=== PATIENT | male | born 2000 | race Caucasian/White ===

== ENCOUNTER 2020-06-09 12:43 | Emergency (ER) | payer BC ==
--- NOTE | 2020-06-09 13:57 | EDM.PDOCBH ---
ED HPI GENERAL MEDICAL PROBLEM - General Chief Complaint: Behavioral/Psych Stated Complaint: SUICIDAL,DEPRESSION,FATIGUE Time Seen by Provider: 06/09/20 13:36 Source of Information: Reports: Patient, RN Notes Reviewed History Limitations: Reports: No Limitations - History of Present Illness INITIAL COMMENTS - FREE TEXT/NARRATIVE: Patient is a 19-year-old male who presents to the ED for the evaluation of his suicidal ideations and depression. He was brought into the ER by his father. The patient himself notes that for the last few days, all he has been doing is sleeping and staying in bed. He notes that he has pretty much had a loss of appetite, and states that he just cannot sleep when he is in bed. He did not sleep until 4:30 AM this morning. He does have a history of anxiety, and they did try him on Adderall for ADHD, but he states this did not seem to help. He has also been tried on hydroxyzine, but he states this was too sedated for him. He notes that about every other day for the past month he has had uncontrollable emotions, to the point where he goes and sits in his room and has to just be away from people. He has no current counselor or psychiatrist. He is not hearing things that are not there or seeing things that are not there. He has no active suicidal plan at this time, but has thought about using a knife to end his life, he has tried to hang himself with the sleeve of a coat in the past, he states he would maybe try poison in his life. He notes that roughly 3 months ago, he had all the symptoms of COVID-19, loss of his sense of taste and smell, and generalized fatigue. He states that this time he does feel chilled, but he has no fever or, cough or shortness of breath. He does have hypothyroidism as well, but is not on any medications for this. He has no regular provider that he goes to. He notes that he did move to [place] for a couple months, to try marijuana to help with his anxiety, but he did not think that this helped either so he stopped using this and moved back to [place] just recently. - Related Data Allergies Allergy/AdvReac Type Severity Reaction Status Date / Time No Known Allergies Allergy Verified 06/09/20 13:35 Home Meds: Home Meds . [No Known Home Meds] 06/09/20 [History] Past Medical History - Infectious Disease History Infectious Disease History: Reports: Novel Coronavirus (2019) Social & Family History - Tobacco Use Tobacco Use Status *Q: Never Tobacco User - Alcohol Use Alcohol Use History: No - Recreational Drug Use Recreational Drug Use: Yes Drug Use in Last 12 Months: Yes Recreational Drug Type: Reports: Marijuana/Hashish (used to use for anxiety, but has stopped) ED ROS GENERAL - Review of Systems Review Of Systems: Comprehensive ROS is negative, except as noted in HPI. ED EXAM, BEHAVIORAL HEALTH - Physical Exam Exam: See Below Exam Limited By: No Limitations General Appearance: Alert, WD/WN, No Apparent Distress Respiratory/Chest: No Respiratory Distress, Lungs Clear, Normal Breath Sounds, No Accessory Muscle Use, Chest Non-Tender Cardiovascular: Normal Peripheral Pulses, Regular Rate, Rhythm, No Edema GI/Abdominal: Normal Bowel Sounds, Soft, Non-Tender, No Distention, No Mass Neurological: Alert, Normal Cognition, No Motor/Sensory Deficits, Oriented x 3 Psychiatric: Alert, Oriented, Depressed Mood, Flat Affect, Poor Eye Contact, Withdrawn, Suicidal Thoughts (thought about cutting himself or poisoning himself.). No: Suicidal Plan, Auditory Hallucinations, Visual Hallucinations Skin Exam: Warm, Dry, Intact, Normal color, No rash COURSE, BEHAVIORAL HEALTH COMP - Course Vital Signs: Last Vital Signs Temp 98.6 F 06/09/20 13:22 Pulse 87 06/09/20 13:22 Resp 20 06/09/20 13:22 BP 101/77 06/09/20 13:22 Pulse Ox 99 06/09/20 13:22 Orders, Labs, Meds: Laboratory Tests 06/09/20 06/09/20 06/09/20 Range/Units 14:05 14:05 14:05 WBC 4.44 (4.23-9.07) K/mm3 RBC 5.78 (4.63-6.08) M/mm3 Hgb 16.6 (13.7-17.5) gm/dl Hct 48.5 (40.1-51.0) % MCV 83.9 (79.0-92.2) fl MCH 28.7 (25.7-32.2) pg MCHC 34.2 (32.2-35.5) g/dl RDW Std Deviation 37.8 (35.1-43.9) fL Plt Count 233 (163-337) K/mm3 MPV 9.0 L (9.4-12.3) fl Neutrophils % (Manual) 52 (40-60) % Band Neutrophils % 0 (0-10) % Lymphocytes % (Manual) 37 (20-40) % Atypical Lymphs % 0 % Monocytes % (Manual) 7 (2-10) % Eosinophils % (Manual) 4 (0.8-7.0) % Basophils % (Manual) 0 L (0.2-1.2) Platelet Estimate Adequate RBC Morph Comment Normal Sodium 138 (136-145) mEq/L Potassium 3.7 (3.5-5.1) mEq/L Chloride 102 (98-107) mEq/L Carbon Dioxide 31 (21-32) mEq/L Anion Gap 8.7 (5-15) BUN 10 (7-18) mg/dL Creatinine 0.9 (0.7-1.3) mg/dL Est Cr Clr Drug Dosing 126.67 mL/min Estimated GFR (MDRD) > 60 (>60) mL/min BUN/Creatinine Ratio 11.1 L (14-18) Glucose 85 (74-106) mg/dL Calcium 9.5 (8.5-10.1) mg/dL Total Bilirubin 0.5 (0.2-1.0) mg/dL AST 17 (15-37) U/L ALT 28 (16-63) U/L Alkaline Phosphatase 67 (46-116) U/L Total Protein 8.4 H (6.4-8.2) g/dl Albumin 4.5 (3.4-5.0) g/dl Globulin 3.9 gm/dL Albumin/Globulin Ratio 1.2 (1-2) TSH 3rd Generation 1.030 (0.516-4.13) uIU/mL Salicylates 1.2 L (2.8-20) mg/dL Urine Opiates Screen (HGAZGM=246) Ur Buprenorphine Scrn (CUTOFF=10) Ur Oxycodone Screen (UDO6TT=404) Urine Methadone Screen (PXF2ND=697) Ur Propoxyphene Screen (IDTZCN=987) Acetaminophen 0 L (10-30) ug/mL Ur Barbiturates Screen (ULJYPZ=583) Ur Tricyclics Screen (RCOKCH=307) Ur Phencyclidine Scrn (CUTOFF=25) Ur Amphetamine Screen (PTPYVH=560) U Methamphetamines Scrn (PXFRRJ=448) U Benzodiazepines Scrn (FXRQKD=942) U Cocaine Metab Screen (BLAGOT=258) U Marijuana (THC) Screen (CUTOFF=50) Ethyl Alcohol 0.00 (0.00) gm% 06/09/20 Range/Units 16:15 WBC (4.23-9.07) K/mm3 RBC (4.63-6.08) M/mm3 Hgb (13.7-17.5) gm/dl Hct (40.1-51.0) % MCV (79.0-92.2) fl MCH (25.7-32.2) pg MCHC (32.2-35.5) g/dl RDW Std Deviation (35.1-43.9) fL Plt Count (163-337) K/mm3 MPV (9.4-12.3) fl Neutrophils % (Manual) (40-60) % Band Neutrophils % (0-10) % Lymphocytes % (Manual) (20-40) % Atypical Lymphs % % Monocytes % (Manual) (2-10) % Eosinophils % (Manual) (0.8-7.0) % Basophils % (Manual) (0.2-1.2) Platelet Estimate RBC Morph Comment Sodium (136-145) mEq/L Potassium (3.5-5.1) mEq/L Chloride (98-107) mEq/L Carbon Dioxide (21-32) mEq/L Anion Gap (5-15) BUN (7-18) mg/dL Creatinine (0.7-1.3) mg/dL Est Cr Clr Drug Dosing mL/min Estimated GFR (MDRD) (>60) mL/min BUN/Creatinine Ratio (14-18) Glucose (74-106) mg/dL Calcium (8.5-10.1) mg/dL Total Bilirubin (0.2-1.0) mg/dL AST (15-37) U/L ALT (16-63) U/L Alkaline Phosphatase (46-116) U/L Total Protein (6.4-8.2) g/dl Albumin (3.4-5.0) g/dl Globulin gm/dL Albumin/Globulin Ratio (1-2) TSH 3rd Generation (0.516-4.13) uIU/mL Salicylates (2.8-20) mg/dL Urine Opiates Screen Negative (XMKCHK=854) Ur Buprenorphine Scrn Negative (CUTOFF=10) Ur Oxycodone Screen Negative (WFO8RN=416) Urine Methadone Screen Negative (NRU1OL=729) Ur Propoxyphene Screen Negative (RPVHME=741) Acetaminophen (10-30) ug/mL Ur Barbiturates Screen Negative (SDWLCC=487) Ur Tricyclics Screen Negative (EORLRQ=056) Ur Phencyclidine Scrn Negative (CUTOFF=25) Ur Amphetamine Screen Negative (LDRYJX=634) U Methamphetamines Scrn Negative (FIHZZB=025) U Benzodiazepines Scrn Negative (RGUMTF=149) U Cocaine Metab Screen Negative (KRISOF=307) U Marijuana (THC) Screen Presumptive positive H (CUTOFF=50) Ethyl Alcohol (0.00) gm% Discharge vs Psych Eval/Treatment:: 06/09/20 14:01 Patient presents to the ED for his suicidal thoughts and depression. At this time he is not actively suicidal, and just having fleeting thoughts. I do believe he would be appropriate to try outpatient management, I will be in touch with [facility] human services to try to align him a spot at [facility]. We will get basic labs for evaluation at this time. 06/09/20 16:18 Patient was able to provide us with a urine sample however this is still running at this time. All other labs are essentially unremarkable. Staff from [facility] was in to talk with the patient, they do have a bed at [facility] for the patient if he should choose to go there. The patient would like to talk over with his parents, to see if he could do more of an outpatient management and to go home tonight. I do thoroughly believe that he would benefit from going to the [facility], and getting his medication started and getting a full evaluation. I did make this known to the patient. 06/09/20 16:36 Urine screen is presumptively positive for marijuana, which he confessed to using. Departure - Departure Time of Disposition: 16:19 Disposition: Home, Self-Care 01 Condition: Good Clinical Impression: Suicidal thoughts, Depressive disorder - Discharge Information *PRESCRIPTION DRUG MONITORING PROGRAM REVIEWED*: No *COPY OF PRESCRIPTION DRUG MONITORING REPORT IN PATIENT VERONIKA: No Instructions: Living With Depression, Suicidal Feelings: How to Help Yourself Referrals: PCP,None [Primary Care Provider] - Forms: ED Department Discharge Additional Instructions: You were evaluated in the ER today for your depression and suicidal ideations. Laboratory evaluation was done, and everything was unremarkable. Your urine screen was positive for marijuana, which you confessed to using in [place]. A cortisol level was done at your request, this is a send out test, please allow roughly 1 week's time for us to receive results of this. You will need to follow-up with your regular provider for results and further management. Call our clinic at [phone] and request to be seen by any family practice provider for an ER follow-up. You have been given the emergency crisis number for [facility], and have been directed to go there tomorrow for open intake into their facility. Please go to [facility] tomorrow morning, so that you can be seen, and get started with their services. As always if your symptoms change or worsen we are here 24/, do not hesitate to return to the ER. Sepsis Event Note (ED) - Evaluation Sepsis Screening Result: No Definite Risk - Focused Exam Vital Signs: Vital Signs Temp Pulse Resp BP Pulse Ox 06/09/ 13:22 98.6 F 87 20 101/77 99
[2020-06-09 14:54] LABS: ACETAMINOPHEN 0 ug/mL (10-30)
== END 2020-06-09 16:55 | disposition home or self-care (01) ==
LOC: JD.ED 12:43
DX: F32.9 Major depressive disorder, single episode, unspecified (principal)
CPT/HCPCS: 36415; 80053; 80306; 80307; 82533; 84443; 85007; 85027; 99284